=== PATIENT | female | born 1990 | race Two or more races ===

== ENCOUNTER 2017-08-06 23:04 | Emergency (ER) | payer BC, OTHER ==
[~2017-08-06] VITALS: Ht 167.6 cm; Wt 105.0 kg
[2017-08-06] MEDS ORDERED: ACETAMINOPHEN 325MG TABLET PO PRN (23:45)
[2017-08-06] MEDS ORDERED: ACETAMINOPHEN 325MG TABLET ONE (23:46)
[2017-08-07 00:17] LABS: BASOPHILS % 0.5 % (0.0-2.0); HEMATOCRIT. 37.8 % (36.0-48.0); HEMOGLOBIN. 13.4 g/dL (12.0-16.0); MEAN CORPUSCULAR HEMOGLOBIN 33.2 pg (28.0-32.0); MEAN CORPUSCULAR VOLUME 93.7 fL (81.0-99.0); MEAN PLATELET VOLUME 8.9 fl (7.4-10.4); MONOCYTES % 6.9 % (2.0-8.0); NEUTROPHILS % 60.6 % (40.0-76.0); PLATELET 289 x1000/uL (130-400); RED BLOOD CELL COUNT 4.03 mill/uL (4.2-5.4); RED CELL DISTRIBUTION WIDTH 12.7 % (11.6-14.6)
[2017-08-07 00:24] LABS: CHLORIDE 105 mEq/L (98-107)
[2017-08-07 00:35] LABS: B-HCG QUANTITATIVE 138 mIU/mL (<3)
[2017-08-07 01:24] LABS: CLARITY URINE TURBID (CLEAR); COLOR URINE RED (YELLOW); KETONES URINE NEGATIVE (NEGATIVE); LEUKOCYTE ESTERASE URINE 1+ (NEGATIVE); NITRITE URINE NEGATIVE (NEGATIVE); OCCULT BLOOD URINE 3+ (NEGATIVE); PH URINE 5.5 (4.5-8.0); PROTEIN URINE 2+ (NEGATIVE); SPECIFIC GRAVITY URINE 1.031 (1.005-1.030)
[2017-08-07 03:05] VITALS: BP 103/57
== END 2017-08-07 03:15 | disposition home or self-care (01) ==
LOC: ER 23:37
DX: O03.4 Incomplete spontaneous abortion without complication (principal); Z3A.08 8 weeks gestation of pregnancy
CPT/HCPCS: 36415; 76856; 80053; 81003; 81025; 83690; 84702; 85025; 86850; 86900; 99285

== ENCOUNTER 2021-06-08 09:51 | Emergency (ER) | payer SELFPAY ==
[~2021-06-08] VITALS: Ht 167.6 cm; Wt 105.0 kg
[2021-06-08] MEDS ORDERED: ACETAMINOPHEN 325MG TABLET PO STA (10:14)
[2021-06-08] MEDS ORDERED: ONDANSETRON HCL 4MG/2ML INJ IM STA (10:14)
[2021-06-08] MEDS ORDERED: MECLIZINE 25MG TABLET PO ONE (10:45)
[2021-06-08 11:38] LABS: CLARITY URINE CLOUDY (CLEAR); COLOR URINE YELLOW (YELLOW); KETONES URINE 1+ (NEGATIVE); LEUKOCYTE ESTERASE URINE 1+ (NEGATIVE); NITRITE URINE NEGATIVE (NEGATIVE); OCCULT BLOOD URINE 2+ (NEGATIVE); PH URINE 6.5 (4.5-8.0); PROTEIN URINE 2+ (NEGATIVE); SPECIFIC GRAVITY URINE 1.023 (1.005-1.030)
[2021-06-08 11:43] LABS: BASOPHILS % 0.4 % (0.0-2.0); EOSINOPHILS % 0.1 % (0.0-5.0); HEMATOCRIT. 43.1 % (36.0-48.0); HEMOGLOBIN. 14.9 g/dL (12.0-16.0); LYMPHOCYTES % 10.1 % (20.0-50.0); MEAN CORPUSCULAR HEMOGLOBIN 31.3 pg (28.0-32.0); MEAN CORPUSCULAR VOLUME 90.3 fL (81.0-99.0); MEAN PLATELET VOLUME 9.8 fl (7.4-10.4); MONOCYTES % 3.3 % (2.0-8.0); NEUTROPHILS % 86.1 % (40.0-76.0); PLATELET 309 x1000/uL (130-400); RED BLOOD CELL COUNT 4.77 mill/uL (4.2-5.4); RED CELL DISTRIBUTION WIDTH 12.6 % (11.6-14.6)
[2021-06-08] MEDS ORDERED: CEFTRIAXONE SODIUM 1 G/VIAL IM ONE (12:15)
[2021-06-08] MEDS ORDERED: LIDOCAINE HCL 1% 20ML VIAL (Pyxis) INJ INFIL ONE (12:15)
[2021-06-08 13:13] LABS: CHLORIDE 104 mEq/L (98-107)
[2021-06-08] MEDS ORDERED: SULF1TAB48 PO (14:09)
[2021-06-08] MEDS ORDERED: NAPR-681 PO (14:09)
[2021-06-08] MEDS ORDERED: MECL-159 PO (14:09)
[2021-06-08 14:19] VITALS: BP 150/88
== END 2021-06-08 14:21 | disposition home or self-care (01) ==
LOC: ER 10:05
DX: R42 Dizziness and giddiness (principal); N39.0 Urinary tract infection, site not specified; H93.11 Tinnitus, right ear
CPT/HCPCS: 36415; 80053; 81003; 81025; 82962; 85025; 93005; 96372; 99284; J0696; J2405; Z7610; J8597

== ENCOUNTER 2021-06-13 16:33 | Emergency (ER) | payer SELFPAY ==
[~2021-06-13] VITALS: Ht 167.6 cm; Wt 109.0 kg
[~2021-06-13 16:33] MED LIST: MECL-159 PO; NAPR-681 PO; SULF1TAB48 PO
[2021-06-13] MEDS ORDERED: MECLIZINE 25MG TABLET PO ONE (17:30)
[2021-06-13] MEDS ORDERED: GUAIFENESIN 600MG ER TABLET PO ONE (17:30)
[2021-06-13] MEDS ORDERED: SODIUM CHLORIDE 0.9% 1,000 ML IV ONE (17:30)
[2021-06-13 18:36] LABS: BASOPHILS % 0.6 % (0.0-2.0); EOSINOPHILS % 0.5 % (0.0-5.0); HEMATOCRIT. 41.5 % (36.0-48.0); HEMOGLOBIN. 14.9 g/dL (12.0-16.0); LYMPHOCYTES % 15.4 % (20.0-50.0); MEAN CORPUSCULAR HEMOGLOBIN 32.4 pg (28.0-32.0); MEAN CORPUSCULAR VOLUME 90.7 fL (81.0-99.0); MEAN PLATELET VOLUME 9.9 fl (7.4-10.4); MONOCYTES % 4.8 % (2.0-8.0); NEUTROPHILS % 78.7 % (40.0-76.0); PLATELET 285 x1000/uL (130-400); RED BLOOD CELL COUNT 4.58 mill/uL (4.2-5.4); RED CELL DISTRIBUTION WIDTH 12.5 % (11.6-14.6)
[2021-06-13 18:53] LABS: CHLORIDE 104 mEq/L (98-107)
[2021-06-13 18:57] LABS: ETHANOL BLOOD < 10 mg/dL
[2021-06-13] MEDS ORDERED: AMOXICILLIN/POTASSIUM CLAVULANATE 875/125MG TAB PO ONE (19:00)
[2021-06-13] MEDS ORDERED: AMOX-424 MT (19:01)
[2021-06-13] MEDS ORDERED: GUAI-741 MT (19:01)
[2021-06-13 19:02] LABS: HCG SCREEN NEGATIVE
[2021-06-13 19:30] VITALS: BP 149/88
[2021-06-13 20:45] LABS: CLARITY URINE CLOUDY (CLEAR); COLOR URINE YELLOW (YELLOW); KETONES URINE 1+ (NEGATIVE); LEUKOCYTE ESTERASE URINE NEGATIVE (NEGATIVE); NITRITE URINE NEGATIVE (NEGATIVE); OCCULT BLOOD URINE NEGATIVE (NEGATIVE); PH URINE 5.5 (4.5-8.0); PROTEIN URINE 1+ (NEGATIVE); SPECIFIC GRAVITY URINE 1.032 (1.005-1.030)
[2021-06-13 21:09] LABS: *AMPHETAMINES SCREEN URINE NEGATIVE (NEGATIVE); *BARBITURATES SCREEN URINE NEGATIVE (NEGATIVE); *BENZODIAZEPINES SCREEN URINE NEGATIVE (NEGATIVE); *COCAINE SCREEN URINE NEGATIVE (NEGATIVE); METHADONE URINE SCREEN NEGATIVE (NEGATIVE); OPIATES URINE SCREEN NEGATIVE (NEGATIVE)
[2021-06-13 21:10] LABS: PHENCYCLIDINE URINE SCREEN NEGATIVE (NEGATIVE)
[2021-06-13 21:27] LABS: CANNABINOID URINE SCREEN PRESUMTIVE POSITIVE (NEGATIVE)
== END 2021-06-13 20:00 | disposition home or self-care (01) ==
LOC: ER 16:33
DX: H66.91 Otitis media, unspecified, right ear (principal); Z13.9 Encounter for screening, unspecified; Z98.890 Other specified postprocedural states
CPT/HCPCS: 36415; 80053; 80305; 80320; 81003; 81025; 83690; 84703; 85025; 93005; 96360; 99284; J7030; J8597; G0480